=== PATIENT | female | born 1930 | race Two or more races ===

== ENCOUNTER 2017-06-17 08:05 | Emergency (ER) | payer OTHER, BC ==
[~2017-06-17] VITALS: Ht 160 cm; Wt 64.4 kg
[~2017-06-17 08:05] MED LIST: CATAFLAM50 MG PO
== END 2017-06-17 10:57 | disposition home or self-care (01) ==
LOC: ER 08:05
DX: R53.1 Weakness (principal); R63.0 Anorexia